=== PATIENT | female | born 1950 | race Caucasian/White ===

== ENCOUNTER 2019-12-30 12:36 | Outpatient (CLI) | payer MEDICARE ==
--- NOTE | 2019-12-30 14:15 | MMO ---
Bilateral MAMMO Bilat Screen [facility]. CLINICAL HISTORY: Patient is 69 years old and is seen for screening. The patient has the following family history of breast cancer: maternal aunt, malignant (generic). The patient has no personal history of cancer. VIEWS: The views performed were: bilateral craniocaudal with tomosynthesis and bilateral mediolateral oblique with tomosynthesis. FILMS COMPARED: The present examination has been compared to prior imaging studies performed at [facility] on 10/31/2014, and at [facility] on 01/25/2017. This study has been interpreted with the assistance of computer-aided detection. MAMMOGRAM FINDINGS: There are scattered fibroglandular densities. There are no suspicious masses, suspicious calcifications, or new areas of architectural distortion. IMPRESSION: THERE IS NO MAMMOGRAPHIC EVIDENCE OF MALIGNANCY. A ROUTINE FOLLOW-UP MAMMOGRAM IN 1 YEAR IS RECOMMENDED. THE RESULTS OF THIS EXAM WERE SENT TO THE PATIENT. ACR BI-RADS Category 1 - Negative MAMMOGRAPHY NOTE: 1. A negative mammogram report should not delay a biopsy if a dominant of clinically suspicious mass is present. 2. Approximately 10% to 15% of breast cancers are not detected by mammography. 3. Adenosis and dense breasts may obscure an underlying neoplasm. Reported by: CRESENCIO LARA MD Electonically Signed: [id number]
== END 2019-12-30 12:37 | disposition home or self-care (01) ==
LOC: BICMAMMO 12:36
PROVIDERS: ATTEND Family Medicine
DX: Z12.31 Encounter for screening mammogram for malignant neoplasm of breast (principal); Z80.3 Family history of malignant neoplasm of breast
CPT/HCPCS: 77063; 77067

== ENCOUNTER 2020-12-06 10:14 | Inpatient (IN) | payer MEDICARE ==
[2020-12-06 12:11] VITALS: BMI 28.8
[2020-12-06] MEDS ORDERED: Acetaminophen 325 MG TAB PO PRN (12:12)
[2020-12-06] MEDS ORDERED: Senokot S 8.6-50 MG TAB PO PRN (12:12)
[2020-12-06] MEDS ORDERED: Diltiazem 125 MG in Sodium Chloride 0.9% 100 ML IVPB SCH ×2 (12:15→16:37)
[2020-12-06] MEDS ORDERED: Nitroglycerin 0.4 MG TAB (25 Tab Bottle) SL PRN (14:49)
[2020-12-06] MEDS ORDERED: Calcium Carbonate 500 MG ChewTAB PO PRN (14:51)
[2020-12-06 15:52] LABS: Troponin I Less than 0.010 ng/mL (< 0.028)
[2020-12-06] MEDS ORDERED: Communication Order-Pharmacy FS ONE (16:34)
[2020-12-06] MEDS ORDERED: hydrOXYzine 25 MG TAB PO PRN (16:38)
[2020-12-06] MEDS ORDERED: Ondansetron PF 4 MG/2 ML Vial IVP PRN (18:31)
[2020-12-06] MEDS ORDERED: Ondansetron ODT 4 MG TAB PO PRN (18:31)
[2020-12-06] MEDS: Citrucel 500 MG TAB PO SCH (20:16)
[2020-12-06] MEDS: Atorvastatin Calcium 10 MG TAB PO SCH (20:16)
[2020-12-06] MEDS: Famotidine 20 MG TAB PO SCH (20:16)
[2020-12-06] MEDS: Saccharomyces boulardii 250 MG CAP PO SCH (20:17)
[2020-12-06] MEDS: Senokot S 8.6-50 MG TAB PO SCH (20:18)
[2020-12-06] MEDS: Enoxaparin Sodium 100 MG/ML SYRINGE SC SCH (20:19)
[2020-12-06] MEDS: Amoxicillin/Potassium Clav 500 MG TAB PO SCH (20:20)
[2020-12-06] MEDS ORDERED: rOPINIRole HCl 0.5 MG TAB PO SCH (21:00)
[2020-12-06 22:00] LABS: SARS-CoV-2 PCR by NAA Not Detected (NotDetected)
[2020-12-06 23:44] LABS: #Basophils 0.1 thou/uL (0.0-0.2); #Eosinphils 0.2 thou/uL (0.0-0.7); #Lymphocytes 1.9 thou/uL (1.20-3.40); #Monocytes 0.5 thou/uL (0.11-0.59); #Neutrophils 5.5 thou/uL (1.40-6.50); %Basophils 0.6 % (0.0-1.0); %Eosinophils 2.8 % (0.0-10.0); %Lymphocytes 23.1 % (21.0-51.0); %Monocytes 5.8 % (0.0-10.0); %Neutrophils 67.7 % (42.0-75.0); Hemoglobin 12.8 g/dL (12.0-16.0); Mean Corpuscular HGB CONC 33.2 g/dL (32.0-36.0); Mean Corpuscular Volume 90.5 fL (78.0-98.0); Mean Platelet Volume 7.9 fL (7.4-10.4); Platelet Count 223 thou/uL (130-400); RBC Distribution Width 12.3 % (11.5-14.5); Red Blood Cell (RBC) Count 4.28 mill/uL (4.20-5.40); White Blood Cell (WBC) Count 8.1 thou/uL (4.8-10.8)
[2020-12-07 00:04] LABS: Anion Gap 12 mmol/L (10-20); BUN (Urea Nitrogen) 14 mg/dL (9.8-20.1); Calc. Creatinine Clearance 94 mL/min (70-130); Calcium 8.7 mg/dL (7.8-10.44); Carbon Dioxide 24 mmol/L (23-31); Chloride 103 mmol/L (98-107); Glucose 108 mg/dL (80-115); Potassium 3.9 mmol/L (3.5-5.1); Sodium 135 mmol/L (136-145)
[2020-12-07 00:09] LABS: Troponin I Less than 0.010 ng/mL (< 0.028)
[2020-12-07 05:42] LABS: #Basophils 0.1 thou/uL (0.0-0.2); #Eosinphils 0.3 thou/uL (0.0-0.7); #Lymphocytes 2.4 thou/uL (1.20-3.40); #Monocytes 0.4 thou/uL (0.11-0.59); #Neutrophils 4.3 thou/uL (1.40-6.50); %Basophils 0.8 % (0.0-1.0); %Eosinophils 3.4 % (0.0-10.0); %Lymphocytes 32.1 % (21.0-51.0); %Monocytes 5.4 % (0.0-10.0); %Neutrophils 58.3 % (42.0-75.0); Hemoglobin 12.5 g/dL (12.0-16.0); Mean Corpuscular HGB CONC 33.6 g/dL (32.0-36.0); Mean Corpuscular Hemoglobin 30.6 pg (27.0-31.0); Mean Corpuscular Volume 91.2 fL (78.0-98.0); Platelet Count 228 thou/uL (130-400); RBC Distribution Width 12.4 % (11.5-14.5); Red Blood Cell (RBC) Count 4.06 mill/uL (4.20-5.40); White Blood Cell (WBC) Count 7.4 thou/uL (4.8-10.8)
[2020-12-07 06:06] LABS: ALT (SGPT) 7 U/L (8-55); AST (SGOT) 12 U/L (5-34); Albumin 3.1 g/dL (3.4-4.8); Alkaline Phosphatase 67 U/L (40-110); Anion Gap 11 mmol/L (10-20); BUN (Urea Nitrogen) 11 mg/dL (9.8-20.1); Bilirubin, Total 0.4 mg/dL (0.2-1.2); Calc. Creatinine Clearance 93 mL/min (70-130); Calcium 8.9 mg/dL (7.8-10.44); Carbon Dioxide 27 mmol/L (23-31); Chloride 103 mmol/L (98-107); Globulin 2.2 g/dL (2.4-3.5); Glucose 94 mg/dL (80-115); Potassium 4.4 mmol/L (3.5-5.1); Protein, Total 5.3 g/dL (5.8-8.1); Sodium 137 mmol/L (136-145)
[2020-12-07] MEDS ORDERED: Metoprolol Tartrate 25 MG TAB PO SCH ×3 (08:00→21:00)
[2020-12-07] MEDS ORDERED: Aspirin 81 mg Enteric Coated Tablet PO SCH (09:00)
[2020-12-07] MEDS: Senokot S 8.6-50 MG TAB PO SCH ×2 (09:10→21:10)
[2020-12-07] MEDS: Amoxicillin/Potassium Clav 500 MG TAB PO SCH ×2 (09:10→21:10)
[2020-12-07] MEDS: Enoxaparin Sodium 100 MG/ML SYRINGE SC SCH (09:10)
[2020-12-07] MEDS: Loratadine 10 MG TAB PO SCH (09:11)
[2020-12-07] MEDS: Famotidine 20 MG TAB PO SCH ×2 (09:11→21:10)
[2020-12-07] MEDS ORDERED: ADENOSINE 60 MG/20 ML VIAL ONE (12:00)
[2020-12-07] MEDS ORDERED: Sodium Chloride 0.9% 500 ML IV SCH (12:45)
[2020-12-07] MEDS ORDERED: Flecainide 50 MG TAB PO SCH ×2 (16:45→21:00)
[2020-12-07] MEDS ORDERED: rOPINIRole HCl 0.5 MG TAB PO SCH (18:00)
[2020-12-07] MEDS: Atorvastatin Calcium 10 MG TAB PO SCH (21:09)
[2020-12-07] MEDS: Citrucel 500 MG TAB PO SCH (21:09)
[2020-12-07] MEDS: Saccharomyces boulardii 250 MG CAP PO SCH (21:10)
[2020-12-07] MEDS: Apixaban 5 MG TAB PO SCH (21:11)
[2020-12-07] MEDS ORDERED: hydrOXYzine 25 MG TAB PO PRN (23:35)
[2020-12-08 04:39] LABS: #Eosinphils 0.4 thou/uL (0.0-0.7); #Lymphocytes 2.5 thou/uL (1.20-3.40); #Monocytes 0.5 thou/uL (0.11-0.59); #Neutrophils 3.1 thou/uL (1.40-6.50); %Basophils 0.7 % (0.0-1.0); %Eosinophils 5.6 % (0.0-10.0); %Lymphocytes 37.9 % (21.0-51.0); %Monocytes 7.8 % (0.0-10.0); Hemoglobin 12.4 g/dL (12.0-16.0); Mean Corpuscular Volume 91.3 fL (78.0-98.0); Mean Platelet Volume 7.5 fL (7.4-10.4); Platelet Count 231 thou/uL (130-400); RBC Distribution Width 12.4 % (11.5-14.5); Red Blood Cell (RBC) Count 3.98 mill/uL (4.20-5.40); White Blood Cell (WBC) Count 6.5 thou/uL (4.8-10.8)
[2020-12-08 05:04] LABS: Anion Gap 10 mmol/L (10-20); BUN (Urea Nitrogen) 9 mg/dL (9.8-20.1); Calc. Creatinine Clearance 94 mL/min (70-130); Carbon Dioxide 26 mmol/L (23-31); Chloride 102 mmol/L (98-107); Glucose 88 mg/dL (80-115); Potassium 4.1 mmol/L (3.5-5.1); Sodium 134 mmol/L (136-145)
[2020-12-08] MEDS: Amoxicillin/Potassium Clav 500 MG TAB PO SCH (08:35)
[2020-12-08] MEDS: Loratadine 10 MG TAB PO SCH (08:35)
[2020-12-08] MEDS: Senokot S 8.6-50 MG TAB PO SCH (08:35)
[2020-12-08] MEDS: Famotidine 20 MG TAB PO SCH (08:35)
[2020-12-08] MEDS: Apixaban 5 MG TAB PO SCH (08:37)
[2020-12-08] MEDS ORDERED: Metoprolol Tartrate 25 MG TAB PO SCH (09:00)
[2020-12-08] MEDS ORDERED: Flecainide 50 MG TAB PO SCH (09:00)
[2020-12-08 16:26] VITALS: BP 103/55; TEMP 98.2
== END 2020-12-08 16:45 | disposition home or self-care (01) | DRG 309 ==
LOC: 2NO 11:56
PROVIDERS: ADMIT Internal Medicine; ATTEND Internal Medicine
DX: I48.0 Paroxysmal atrial fibrillation (principal); K57.92 Diverticulitis of intestine, part unspecified, without perforation or abscess without bleeding; I10 Essential (primary) hypertension; E83.42 Hypomagnesemia; N18.2 Chronic kidney disease, stage 2 (mild); R07.9 Chest pain, unspecified; G25.81 Restless legs syndrome; E78.5 Hyperlipidemia, unspecified; I08.1 Rheumatic disorders of both mitral and tricuspid valves; F51.04 Psychophysiologic insomnia; R00.0 Tachycardia, unspecified; I95.9 Hypotension, unspecified; Z20.822 Contact with and (suspected) exposure to COVID-19; Z79.899 Other long term (current) drug therapy; Z90.710 Acquired absence of both cervix and uterus; Z90.49 Acquired absence of other specified parts of digestive tract; Z90.721 Acquired absence of ovaries, unilateral; Z87.19 Personal history of other diseases of the digestive system
CPT/HCPCS: 36415; 78452; 80048; 80053; 83735; 85025; 85379; 93005; 93010; 93017; 93306; 94760; A9500; J0153; J1650; U0003; U0005

== ENCOUNTER 2022-03-07 08:52 | Day surgery (SDC) | payer MEDICARE ==
[2022-03-04 13:31] VITALS: BMI 28.1
[2022-03-07] MEDS ORDERED: Isoproterenol 0.2 MG/1 ML AMP ONE (09:53)
[2022-03-07] MEDS ORDERED: Heparin 25,000 units/D5W 500 ML ONE (09:53)
[2022-03-07] MEDS ORDERED: Heparin 10,000 UNITS/ 10 ML VIAL ONE (09:53)
[2022-03-07] MEDS ORDERED: Protamine Sulfate 50 MG/5 ML VIAL ONE (09:53)
[2022-03-07] MEDS ORDERED: Phenylephrine 10 MG/ML VIAL ONE (12:26)
[2022-03-07] MEDS ORDERED: PROPOFOL 200 MG/20 ML VIAL ONE (12:26)
[2022-03-07] MEDS ORDERED: NEOSTIGMINE 3 MG/3 ML SYR 3 MG/3 ML SYRINGE ONE (12:26)
[2022-03-07] MEDS ORDERED: GLYCOPYRROLATE/PF 0.2 MG/ML VIAL ONE (12:26)
[2022-03-07] MEDS ORDERED: Ondansetron PF 4 MG/2 ML Vial ONE (12:26)
[2022-03-07] MEDS ORDERED: ePHEDrine 50 MG/ML VIAL ONE (12:26)
[2022-03-07] MEDS ORDERED: Succinylcholine 200 MG/10 ml SYRINGE FS ONE (12:26)
[2022-03-07] MEDS ORDERED: Dexamethasone 20 MG/5 ML VIAL ONE (12:26)
[2022-03-07] MEDS ORDERED: Rocuronium Bromide 10 MG/ML (10ML VIAL) ONE (12:26)
[2022-03-07] MEDS ORDERED: FENTANYL 50 MCG/ML 1 ML VIAL ONE (14:53)
[2022-03-07] MEDS ORDERED: Ketorolac Tromethamine 30 MG/ML VIAL ONE (16:25)
[2022-03-07] MEDS ORDERED: Sucralfate 1 GM TAB PO SCH (18:15)
[2022-03-08] MEDS ORDERED: Sucralfate 1 GM TAB PO SCH (09:00)
== END 2022-03-07 19:40 | disposition home or self-care (01) ==
LOC: SDC 08:52
PROVIDERS: ATTEND Internal Medicine Cardiovascular Disease
PROC: 02583ZZ Destruction of Conduction Mechanism, Percutaneous Approach (ICD-10-PCS; principal; 2022-03-07)
PROC: 02K83ZZ Map Conduction Mechanism, Percutaneous Approach (ICD-10-PCS; 2022-03-07)
PROC: 4A023FZ Measurement of Cardiac Rhythm, Percutaneous Approach (ICD-10-PCS; 2022-03-07)
PROC: 4A0234Z Measurement of Cardiac Electrical Activity, Percutaneous Approach (ICD-10-PCS; 2022-03-07)
DX: I48.0 Paroxysmal atrial fibrillation (principal); Q21.12 Patent foramen ovale; I08.1 Rheumatic disorders of both mitral and tricuspid valves; I10 Essential (primary) hypertension; E78.5 Hyperlipidemia, unspecified; G25.81 Restless legs syndrome; I48.91 Unspecified atrial fibrillation; Z87.891 Personal history of nicotine dependence; Z79.01 Long term (current) use of anticoagulants; Z79.899 Other long term (current) drug therapy
CPT/HCPCS: 85347 ×2; 93005; 93623; 93656; J3010; J3490; 93010; C1732; C1759; C1760; C1769; C1894; J1100; J1644; J1885; J2370; J2405; J2704; J2720

== ENCOUNTER 2023-05-12 14:49 | Outpatient (CLI) | payer MEDICARE | END 2023-05-12 14:50 | disposition home or self-care (01) | LOC: BICMAMMO 14:49 | PROVIDERS: ATTEND Internal Medicine | DX: Z12.31 Encounter for screening mammogram for malignant neoplasm of breast (principal); Z13.820 Encounter for screening for osteoporosis; M85.851 Other specified disorders of bone density and structure, right thigh; M85.852 Other specified disorders of bone density and structure, left thigh; Z90.710 Acquired absence of both cervix and uterus; Z80.3 Family history of malignant neoplasm of breast | CPT/HCPCS: 77063; 77067; 77080 ==

== ENCOUNTER 2025-01-14 13:59 | Outpatient (CLI) | payer MEDICARE ==
[2025-01-14 15:02] LABS: #Basophils 0.06 10x3/uL (0.0-0.2); #Eosinophils 0.21 10x3/uL (0.0-0.7); #Monocytes 0.40 10x3/uL (0.11-0.59); #Neutrophils 4.64 10x3/uL (1.40-6.50); %Basophils 0.8 % (0.0-1.0); %Eosinophils 2.8 % (0.0-10.0); %Lymphocytes 30.0 % (21.0-51.0); %Monocytes 5.2 % (0.0-10.0); %Neutrophils 60.8 % (42.0-75.0); Hematocrit 41.6 % (36.0-47.0); Hemoglobin 13.2 g/dL (12.0-16.0); Mean Corpuscular Hemoglobin 28.9 pg (27.0-31.0); Mean Corpuscular Volume 91.2 fL (78.0-98.0); Platelet Count 253 10x3/uL (130-400); Red Blood Cell (RBC) Count 4.56 mill/uL (4.20-5.40); White Blood Cell (WBC) Count 7.63 10x3/uL (4.8-10.8)
[2025-01-14 15:16] LABS: Anion Gap 14 mmol/L (10-20); BUN (Urea Nitrogen) 17 mg/dL (9.8-20.1); Calc. Creatinine Clearance 0 mL/min (70-130); Calcium 9.8 mg/dL (7.8-10.44); Carbon Dioxide 28 mmol/L (23-31); Chloride 100 mmol/L (98-107); Glucose 131 mg/dL (83-110); Potassium 3.6 mmol/L (3.5-5.1); Sodium 138 mmol/L (136-145)
== END 2025-01-14 14:00 | disposition home or self-care (01) ==
LOC: LABBT 13:59
PROVIDERS: ATTEND Internal Medicine Cardiovascular Disease
DX: Z01.812 Encounter for preprocedural laboratory examination (principal); I48.91 Unspecified atrial fibrillation
CPT/HCPCS: 80048; 85025